=== PATIENT | male | born 1980 | race Caucasian/White ===

== ENCOUNTER → 2018-10-24 08:39 | Outpatient (CLI) | payer BC, SELFPAY ==
[2018-10-24 14:01] LABS: Alanine Aminotransferase 84 U/L (12-78); Albumin Level 4.2 gm/dL (3.4-5.0); Anion Gap 12.5 mEq/L (5-15); Aspartate Amino Transferase 40 U/L (15-37); Bilirubin,Total 0.3 mg/dL (0.2-1.0); Blood Urea Nitrogen 20 mg/dL (7-18); Carbon Dioxide 28 mmol/L (21.0-32.0); Chloride 106 mmol/L (98-107); Creatinine,Serum 1.11 mg/dL (0.70-1.30); Estimated Glomerular Filt Rate 73 ml/min (>60); GFR (African American) 89 ML/MIN (>60); Globulin 3.2 gm/dl (1.3-3.2); Glucose 98 mg/dL (74-106); Potassium 4.5 mmoL/L (3.5-5.1); Sodium 142 mmol/L (136-145); Total Protein,Serum 7.4 gm/dL (6.4-8.2)
[2018-10-24 14:02] LABS: Albumin/Globulin Ratio 1.3 (1.1-1.8); Alkaline Phosphatase 84 U/L (46-116); Chol/HDL Ratio 7.2 (1-3.5); Cholesterol 173 mg/dL (140-200); HDL Cholesterol 24 mg/dL (27-67); LDL Cholesterol 123 mg/dL (0-130); Triglycerides 132 mg/dL (30-200); VLDL Cholesterol 26 mg/dL (0-40)
[2018-10-24 14:39] LABS: Hemoglobin A1C 5.5 % (0.0-7.0)
== END ==
PROVIDERS: Visit Provider Family Medicine
DX: I10 Essential (primary) hypertension (principal); Z83.3 Family history of diabetes mellitus
CPT/HCPCS: 36415; 80053; 80061; 83036; 84443

== ENCOUNTER → 2020-10-28 10:35 | Outpatient (CLI) | payer BC, SELFPAY ==
[2020-10-28 11:16] LABS: Alanine Aminotransferase 54 U/L (12-78); Albumin Level 4.3 g/dl (3.5-5.0); Albumin/Globulin Ratio 1.5 (1.1-1.8); Alkaline Phosphatase 76 U/L (38-126); Anion Gap 11.4 mEq/L (5-15); Aspartate Amino Transferase 34 U/L (17-59); Bilirubin,Total 0.5 mg/dl (0.2-1.3); Blood Urea Nitrogen 16 mg/dl (9-20); Calcium 9.6 mg/dl (8.4-10.2); Carbon Dioxide 26 mmol/L (22.0-30.0); Chloride 109 mmol/L (98-107); Chol/HDL Ratio 6.6 (1-3.5); Cholesterol 186 mg/dl (140-200); Estimated Glomerular Filt Rate 73 ml/min (>60); GFR (African American) 89 ML/MIN (>60); Globulin 2.9 g/dL (1.3-3.2); Glucose 100 mg/dl (74-100); HDL Cholesterol 28 mg/dl (40-60); Potassium 4.4 mmoL/L (3.5-5.1); Sodium 142 mmol/L (136-145); Total Protein,Serum 7.2 g/dl (6.3-8.2); Triglycerides 178 mg/dl (30-150); VLDL Cholesterol 36 mg/dL (0-40)
[2020-10-28 11:27] LABS: Direct LDL Cholesterol 129.88 mg/dL (100-129)
== END ==
PROVIDERS: Visit Provider Family Medicine
DX: I10 Essential (primary) hypertension (principal); E78.5 Hyperlipidemia, unspecified
CPT/HCPCS: 36415; 80053; 80061

== ENCOUNTER 2021-04-04 19:35 | Emergency (ER) | payer BC, SELFPAY ==
[2021-04-04 19:45] VITALS: BP 137/84; PULSE 90; RESP 18; TEMP 36.7; O2SAT 96; BMI 40.4
--- NOTE | 2021-04-04 19:45 | ECG_ITS ---
APPROVED REPORT Exam: Resting ECG HR:84 bpm ECG Measurements Heart Rate 84 AXES [place] 130 P 32 QRSd 110 QRS 49 QT 366 T 41 QTc 432 Conclusion Normal sinus rhythm Normal ECG Electronically signed by : Migue Stout, 04/05/2021 14:28:37
[2021-04-04 20:10] LABS: Basophils # 0.1 K/mm3 (0-0.2); Basophils % 0.5 % (0.1-2.0); Eosinophils # 0.1 K/mm3 (0.0-0.4); Eosinophils % 0.5 % (0.1-12.0); Hematocrit 43.8 % (42.0-52.0); Hemoglobin 15.6 g/dL (14.1-18.0); Lymphocytes % 43.1 % (10-50); Mean Corpuscular HGB Conc 35.6 g/dL (31.8-35.4); Mean Corpuscular Hemoglobin 28.8 pg (27.0-31.2); Mean Corpuscular Volume 80.9 fl (80-94); Mean Platelet Volume 7.7 fl (7.4-10.4); Monocytes # 0.6 K/mm3 (0.1-1.0); Neutrophils # 5.9 K/mm3 (1.8-7.8); Neutrophils % 50.9 % (37.0-80.0); Platelet Count 306 K/mm3 (142-424); Red Blood Count 5.41 M/mm3 (4.60-6.20); Red Cell Distribution Width 13.5 % (11.5-17.5); White Blood Count 11.6 K/mm3 (4.8-10.8)
[2021-04-04 20:22] LABS: Alanine Aminotransferase 58 U/L (12-78); Albumin Level 4.6 g/dl (3.5-5.0); Albumin/Globulin Ratio 1.7 (1.1-1.8); Alkaline Phosphatase 88 U/L (38-126); Anion Gap 11.8 mEq/L (5-15); Aspartate Amino Transferase 45 U/L (17-59); Bilirubin,Total 0.4 mg/dl (0.2-1.3); Blood Urea Nitrogen 26 mg/dl (9-20); Calcium 9.2 mg/dl (8.4-10.2); Carbon Dioxide 23 mmol/L (22.0-30.0); Chloride 110 mmol/L (98-107); Creatinine Clearance Estimated 163 mL/min (50-200); Estimated Glomerular Filt Rate 73 ml/min (>60); GFR (African American) 89 ML/MIN (>60); Globulin 2.7 g/dL (1.3-3.2); Glucose 136 mg/dl (74-100); Potassium 3.8 mmoL/L (3.5-5.1); Sodium 141 mmol/L (136-145); Total Protein,Serum 7.3 g/dl (6.3-8.2)
[2021-04-04 20:27] LABS: C-Reactive Protein 4.1 mg/L (0-4)
[2021-04-04 20:41] LABS: Procalcitonin 0.064 ng/mL (0.0-2.0)
--- NOTE | 2021-04-04 20:52 | HMH.EDALLER ---
ED Disposition Clinical Impression: Bee sting-induced anaphylaxis Qualifiers: Encounter type: initial encounter Injury intent: accidental or unintentional Qualified Code(s): T63.441A - Toxic effect of venom of bees, accidental (unintentional), initial encounter Disposition: Home, Self-Care Condition on Discharge: Good Instructions: DI for Insect Bites and Stings Additional Instructions: see pcp for follow up - pt declined epi-pen Prescriptions: predniSONE [Prednisone 20mg Tab] 20 mg PO BID #10 tab Transmission Status: Pending to [id number] Referrals: Omari Lozano MD [Primary Care Provider] - - Critical Care Critical Care Time: No Attestation: On 04/04/21, the high probability of a clinically significant, sudden or life threatening deterioration of the following system(s) required my full and direct attention, intervention and personal management. The time I documented below is in addition to time spent performing reported procedures but includes the following listed in this critical care notation. Medical Decision Making - Medical Records Medical records reviewed: Yes: I reviewed the patient's medical records. - Lenny Inquiry Pt receiving controlled substance: No Vital Signs: 04/04/21 19:45 Temperature 98.1 F Temperature Source Oral Pulse Rate [Right] 90 Respiratory Rate 18 Blood Pressure [Right Arm] 137/84 Blood Pressure Mean [Right Arm] 101 Blood Pressure Source [Right Arm] Automatic Cuff Blood Pressure Position [Right Arm] Supine 02 Sat by Pulse Oximetry 96 Oxygen Delivery Method Room Air - Lab Data Lab results reviewed: Yes: I reviewed the patient's lab results. Lab Results 04/04/21 19:45: WBC 11.6 H, RBC 5.41, Hgb 15.6, Hct 43.8, MCV 80.9, MCH 28.8, MCHC 35.6 H, RDW 13.5, Plt Count 306, MPV 7.7, Neut % (Auto) 50.9, Lymph % (Auto) 43.1, Roberts % (Auto) 5.0, Eos % (Auto) 0.5, Baso % (Auto) 0.5, Neut # (Auto) 5.9, Lymph # (Auto) 5.0 H, Roberts # (Auto) 0.6, Eos # (Auto) 0.1, Baso # (Auto) 0.1 04/04/21 19:45: Sodium 141, Potassium 3.8, Chloride 110 H, Carbon Dioxide 23, Anion Gap 11.8, BUN 26 H, Creatinine 1.10, Estimated Creat Clear 163, Estimated GFR 73, Est GFR ( Amer) 89, Glucose 136 H, Calcium 9.2, Total Bilirubin 0.4, AST 45, ALT 58, Alkaline Phosphatase 88, C-Reactive Protein 4.1 H, Total Protein 7.3, Albumin 4.6, Globulin 2.7, Albumin/Globulin Ratio 1.7 Result diagrams: 04/04/21 19:45 04/04/21 19:45 Orders (Tests/Meds): ED MEDICATIONS Generic Name Dose Route Start Last Admin Trade Name Freq PRN Reason Stop Dose Admin Sodium Chloride 1,000 mls @ 999 mls/hr 04/04/21 20:00 04/04/21 20:21 Sod Chlor 0.9% 1000ml Bag IV 04/04/21 21:00 999 mls/hr .Q1H1M ROBIN Administration Sodium Chloride 8 ml 04/04/21 19:59 Sodium Chloride 0.9% 10ml Vial IV 05/04/21 19:58 NEEDED PRN dilute pepcid Discontinued Medications Generic Name Dose Route Start Last Admin Trade Name Freq PRN Reason Stop Dose Admin Famotidine 20 mg 04/04/21 19:59 04/04/21 20:21 Famotidine 20mg/2ml Vial IV 04/04/21 20:00 20 mg ONCE ONE Administration Methylprednisolone Sodium Succinate 125 mg 04/04/21 19:59 04/04/21 20:20 Methylprednisolone Sod Succ 125mg Vial IV 04/04/21 20:00 125 mg ONCE ONE Administration ORDERS Category Date Time Status C-Reactive Protein Stat Lab 04/04/21 19:45 Results Complete Blood Count Auto Diff Stat Lab 04/04/21 19:45 Results Comprehensive Metabolic Panel Stat Lab 04/04/21 19:45 Results Erythrocyte Sedimentation Rate Stat Lab 04/04/21 19:45 Results Procalcitonin Stat Lab 04/04/21 19:45 Results - ECG Data Tracing #1 Normal Sinus Rhythm: Yes Ischemic changes: non-specific ST-T wave changes - Reevaluation(s) Time: 20:57 Reevaluation #1: improved Medical Decision Narrative: improved and stable after treatment as pt had acute bee sting reaction Allergic React/Insect Bite HP
[2021-04-04 20:59] VITALS: BP 119/87; PULSE 81; RESP 18; TEMP 36.7; O2SAT 97
[2021-04-04 21:24] LABS: Erythrocyte Sedimentation Rate 2 mm/hr (0-15)
== END 2021-04-04 21:06 | disposition home or self-care (01) ==
PROVIDERS: Emergency Provider Emergency Medicine; PCP Family Medicine
DX: T63.441A Toxic effect of venom of bees, accidental (unintentional), initial encounter (principal); R06.02 Shortness of breath
CPT/HCPCS: 80053; 84145; 85025; 85651; 86140; 93005; 96365; 96375; 99282

== ENCOUNTER 2021-08-04 20:12 | Emergency (ER) | payer BC, SELFPAY ==
[2021-08-04 20:25] VITALS: BP 179/100; PULSE 81; RESP 16; TEMP 36.5; O2SAT 99; BMI 36.9
--- NOTE | 2021-08-04 20:30 | ECG_ITS ---
APPROVED REPORT Exam: Resting ECG HR:74 bpm ECG Measurements Heart Rate 74 AXES [place] 168 P 55 QRSd 110 QRS 52 QT 390 T 62 QTc 432 Conclusion Normal sinus rhythm Normal ECG Electronically signed by : Migue Stout MD 08/05/2021 07:00:30
--- NOTE | 2021-08-04 20:30 | XR_ITS ---
PROCEDURE INFORMATION: Exam: XR Chest Exam date and time: 08/04/2021 8:30 PM Age: 40 years old Clinical indication: Other: Near syncope; Additional info: Near syncope, cardiac eval TECHNIQUE: Imaging protocol: XR of the chest. Views: 2 views. COMPARISON: No relevant prior studies available. FINDINGS: Lungs: Unremarkable. No consolidation. Pleural spaces: Unremarkable. No pleural effusion. No pneumothorax. Heart/Mediastinum: Unremarkable. No cardiomegaly. Bones/joints: Unremarkable. IMPRESSION: No acute findings.
[2021-08-04 20:41] LABS: Basophils # 0.1 K/mm3 (0-0.2); Basophils % 0.9 % (0.1-2.0); Eosinophils # 0.1 K/mm3 (0.0-0.4); Eosinophils % 1.8 % (0.1-12.0); Hematocrit 47.3 % (42.0-52.0); Hemoglobin 16.8 g/dL (14.1-18.0); Lymphocytes # 2.6 K/mm3 (0.7-4.5); Lymphocytes % 34.8 % (10-50); Mean Corpuscular HGB Conc 35.5 g/dL (31.8-35.4); Mean Corpuscular Hemoglobin 29.9 pg (27.0-31.2); Mean Corpuscular Volume 84.3 fl (80-94); Mean Platelet Volume 7.7 fl (7.4-10.4); Monocytes # 0.3 K/mm3 (0.1-1.0); Monocytes % 4.2 % (1.7-9.3); Neutrophils # 4.3 K/mm3 (1.8-7.8); Neutrophils % 58.3 % (37.0-80.0); Platelet Count 266 K/mm3 (142-424); Red Blood Count 5.62 M/mm3 (4.60-6.20); Red Cell Distribution Width 13.2 % (11.5-17.5); White Blood Count 7.4 K/mm3 (4.8-10.8)
[2021-08-04 20:43] LABS: Coronavirus 19, PCR Not Detected (NotDetected); Influenza A, PCR Not Detected (NotDetected); Influenza B, PCR Not Detected (NotDetected)
[2021-08-04 20:47] LABS: Alanine Aminotransferase 53 U/L (12-78); Albumin Level 4.5 g/dl (3.5-5.0); Albumin/Globulin Ratio 1.6 (1.1-1.8); Alkaline Phosphatase 72 U/L (38-126); Anion Gap 12.6 mEq/L (5-15); Aspartate Amino Transferase 45 U/L (17-59); Bilirubin,Total 0.2 mg/dl (0.2-1.3); Blood Urea Nitrogen 19 mg/dl (9-20); Calcium 8.8 mg/dl (8.4-10.2); Carbon Dioxide 27 mmol/L (22.0-30.0); Chloride 107 mmol/L (98-107); Creatinine Clearance Estimated 133 mL/min (50-200); Estimated Glomerular Filt Rate 61 ml/min (>60); GFR (African American) 73 ML/MIN (>60); Globulin 2.8 g/dL (1.3-3.2); Glucose 178 mg/dl (74-100); Potassium 3.6 mmoL/L (3.5-5.1); Sodium 143 mmol/L (136-145); Total Protein,Serum 7.3 g/dl (6.3-8.2)
[2021-08-04 20:53] LABS: C-Reactive Protein 3.6 mg/L (0-4)
[2021-08-04 21:05] LABS: Erythrocyte Sedimentation Rate 3 mm/hr (0-15); Troponin I < 0.01 ng/ml (0.00-0.034)
[2021-08-04 21:07] LABS: Procalcitonin 0.064 ng/mL (0.0-2.0)
[2021-08-04 22:50] LABS: Troponin I < 0.01 ng/ml (0.00-0.034)
--- NOTE | 2021-08-04 23:35 | HMH.EDSYNC ---
ED Disposition Clinical Impression: Intermittent lightheadedness Medication reaction Qualifiers: Encounter type: initial encounter Qualified Code(s): T50.905A - Adverse effect of unspecified drugs, medicaments and biological substances, initial encounter Hypertension Qualifiers: Hypertension type: primary hypertension Qualified Code(s): I10 - Essential (primary) hypertension Disposition: Home, Self-Care Condition on Discharge: Good Instructions: DI for Syncope in Adults (Fainting) Additional Instructions: monitor bp and call pcp for follow up Referrals: Omari Lozano MD [Primary Care Provider] - - Critical Care Critical Care Time: No Attestation: On 08/04/21, the high probability of a clinically significant, sudden or life threatening deterioration of the following system(s) required my full and direct attention, intervention and personal management. The time I documented below is in addition to time spent performing reported procedures but includes the following listed in this critical care notation. Medical Decision Making - Medical Records Medical records reviewed: Yes: I reviewed the patient's medical records. - Lenny Inquiry Pt receiving controlled substance: No Vital Signs: 08/04/21 20:25 Temperature 97.7 F Temperature Source Oral Pulse Rate [Right Brachial] 81 Respiratory Rate 16 Blood Pressure [Right Arm] 179/100 H Blood Pressure Mean [Right Arm] 126 Blood Pressure Source [Right Arm] Automatic Cuff Blood Pressure Position [Right Arm] Sitting 02 Sat by Pulse Oximetry 99 Oxygen Delivery Method Room Air - Lab Data Lab results reviewed: Yes: I reviewed the patient's lab results. Lab Results 08/04/21 20:22: WBC 7.4, RBC 5.62, Hgb 16.8, Hct 47.3, MCV 84.3, MCH 29.9, MCHC 35.5 H, RDW 13.2, Plt Count 266, MPV 7.7, Neut % (Auto) 58.3, Lymph % (Auto) 34.8, O'Brien % (Auto) 4.2, Eos % (Auto) 1.8, Baso % (Auto) 0.9, Neut # (Auto) 4.3, Lymph # (Auto) 2.6, O'Brien # (Auto) 0.3, Eos # (Auto) 0.1, Baso # (Auto) 0.1 08/04/21 20:22: Sodium 143, Potassium 3.6, Chloride 107, Carbon Dioxide 27, Anion Gap 12.6, BUN 19, Creatinine 1.30 H, Estimated Creat Clear 133, Estimated GFR 61, Est GFR ( Amer) 73, Glucose 178 H, Calcium 8.8, Total Bilirubin 0.2, AST 45, ALT 53, Alkaline Phosphatase 72, Troponin I < 0.01, C-Reactive Protein 3.6, Total Protein 7.3, Albumin 4.5, Globulin 2.8, Albumin/Globulin Ratio 1.6 08/04/21 20:22: ESR 3 08/04/21 20:22: Procalcitonin 0.064 08/04/21 20:30: SARS-CoV-2 (PCR) Not detected, Influenza A Untype (PCR) Not detected, Influenza Type B (PCR) Not detected 08/04/21 22:24: Troponin I < 0.01 Result diagrams: 08/04/21 20:22 08/04/21 20:22 Orders (Tests/Meds): ED MEDICATIONS Generic Name Dose Route Start Last Admin Trade Name Freq PRN Reason Stop Dose Admin Sodium Chloride 1,000 mls @ 999 mls/hr 08/04/21 20:45 08/04/21 20:41 Sod Chlor 0.9% 1000ml Bag IV 08/04/21 21:45 999 mls/hr .Q1H1M ROBIN Administration Discontinued Medications Generic Name Dose Route Start Last Admin Trade Name Freq PRN Reason Stop Dose Admin Ondansetron HCl 4 mg 08/04/21 20:33 08/04/21 20:41 Ondansetron 4mg/2ml Vial IV 08/04/21 20:34 4 mg ONCE ONE Administration ORDERS Category Date Time Status Troponin I Q3H Lab 08/05/21 02:30 Ordered - Radiology Data #1 Image(s): Chest Image Reviewed: Yes I have reviewed radiologist's interpretation Preliminary Findings: Normal/NAD - ECG Data Tracing #1 I reviewed this ECG and interpreted as documented below: Normal Sinus Rhythm: Yes Ischemic changes: non-specific ST-T wave changes - Reevaluation(s) Time: 00:10 Reevaluation #1: improved after fluids and bp better - JAKY Score for Non-Stemi Age of Patient: 40-49 years old Heart Rate: 70-89 bpm Systolic Blood Pressure: 160-199 mmHg Serum Creatinine: 1.20-1.59 mg/dl CHF Killip Class: I-No CHF Other Risk Factors: None Non-Stemi Risk Score: 54
[2021-08-05 00:16] VITALS: BP 154/78; PULSE 81; RESP 16; TEMP 36.5; O2SAT 98
== END 2021-08-05 00:19 | disposition home or self-care (01) ==
PROVIDERS: Emergency Provider Emergency Medicine; PCP Family Medicine
DX: R55 Syncope and collapse (principal); T50.7X5A Adverse effect of analeptics and opioid receptor antagonists, initial encounter; I10 Essential (primary) hypertension
CPT/HCPCS: 71046; 80053; 84145; 84484; 85025; 85651; 86140; 93005; 96365; 96375; 99283; C9803; J2405; U0003; U0005

== ENCOUNTER → 2022-02-08 09:01 | Outpatient (CLI) | payer BC, SELFPAY | PROVIDERS: PCP Family Medicine; Visit Provider Family Medicine | DX: Z20.822 Contact with and (suspected) exposure to COVID-19 (principal) | CPT/HCPCS: C9803; U0003; U0005 ==

== ENCOUNTER → 2024-01-14 12:54 | Outpatient (CLI) | payer BC, SELFPAY | LOC: SL 01-16 12:56 | PROVIDERS: PCP Family Medicine; Visit Provider Specialist | DX: G47.33 Obstructive sleep apnea (adult) (pediatric) (principal); G47.36 Sleep related hypoventilation in conditions classified elsewhere | CPT/HCPCS: G0399 ==